=== PATIENT | female | born 1985 | race American Indian/Alaskan Native ===

== ENCOUNTER 2018-03-29 21:29 | Emergency (ER) | payer BC, OTHER ==
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
[2018-03-29 22:16] LABS: SQUAMOUS EPITHIAL 7 /hpf (0-5); URINE BACTERIA FEW (<OCC); URINE BILIRUBIN NEGATIVE (NEGATIVE); URINE BLOOD 3+ (NEGATIVE); URINE CLARITY Hazy (Clear); URINE COLOR Yellow (YELLOW); URINE GLUCOSE (UA) NORMAL (Normal); URINE LEUKOCYTE ESTERASE 2+ Leu/uL (Negative); URINE PROTEIN NEGATIVE (NEGATIVE); URINE UROBILINOGEN NORMAL mg/dL (0.2-1.0)
[2018-03-29 22:17] LABS: BASO # 0.1 K/uL (0.0-0.2); BASO % 0.5 % (0.0-2.0); EOS # 0.1 K/uL (0.0-0.7); EOS % 0.7 % (0.0-4.0); HEMOGLOBIN 14.1 g/dL (11.0-16.0); LYMPH # 2.9 K/uL (1.0-4.3); LYMPH % 25.5 % (20.0-40.0); MEAN CORPUSCULAR HEMOGLOBIN 30.5 pg (27.0-31.0); MEAN CORPUSCULAR HGB CONC 33.7 g/dL (33.0-37.0); MEAN PLATELET VOLUME 7.4 fL (7.2-11.7); MONO # 0.7 K/uL (0.0-0.8); MONO % 5.8 % (0.0-10.0); NEUT # 7.7 K/uL (1.8-7.0); NEUT % 67.5 % (50.0-75.0); RBC 4.63 Mil/uL (3.80-5.20); RED CELL DISTRIBUTION WIDTH 13.4 % (11.5-14.5); WHITE BLOOD COUNT 11.4 K/uL (4.8-10.8)
[2018-03-29 22:18] LABS: MEAN CELL VOLUME 90.3 fL (81.0-99.0)
[2018-03-29 22:21] LABS: HCG,QUALITATIVE URINE POSITIVE (NEGATIVE)
[2018-03-29 22:25] LABS: INR 1.1; PROTHROMBIN TIME 12.1 SECONDS (9.7-12.2)
[2018-03-29 22:37] LABS: ALB/GLOB RATIO 1.4 (1.0-2.1); ALBUMIN 4.4 g/dL (3.5-5.0); ALT/SGPT 32 U/L (9-52); AST/SGOT 25 U/L (14-36); BLOOD UREA NITROGEN 10 mg/dL (7-17); CALCIUM 10.5 mg/dl (8.6-10.4); GFR NON-AFRICAN AMERICAN > 60
[2018-03-30] MEDS ORDERED: Methotrexate 50 mg/2 ml Inj IM ONE (01:03)
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
[2018-03-30 01:40] VITALS: BP 123/62; PULSE 75; RESP 20; TEMP 98.2; O2SAT 98
--- NOTE | 2018-03-30 11:04 | US ---
Date of service: 03/29/2018 Indication: vag bleed, 4 weeks Comparison: Pelvic ultrasound performed 12/17/14 Technique: Real-time transabdominal pelvic ultrasound was performed. In addition a transvaginal pelvic ultrasound was necessary to better depict pelvic anatomy. Findings: The uterus measures approximately 8.6 x 4.2 x 5.3 cm. Anteverted. 0.9 x 0.9 x 0.9 cm fundal fibroid. Endometrium measures approximately 1.3 cm in diameter. No evidence of intrauterine gestational sac. The right ovary measures 3.2 x 1.8 x 2.4 cm. The left ovary measures 2.4 x 1.7 x 2.5. Blood flow was demonstrated to both ovaries. Evidence of complex left adnexal mass demonstrating vascularity. Impression: Evidence of complex left adnexal mass demonstrating vascularity, possibly ectopic . No evidence of intrauterine gestational sac. If indeed the patient is based on serum beta HCG values, the sonographic findings represent either: Very early IUP; embryonic demise; ectopic gestation. Follow-up with serial quantitative serum beta HCG measurements and post OBGYN follow-up as clinically indicated. 0.9 x 0.9 x 0.9 cm fundal fibroid. Preliminary impression was provided by TEAGAN Romano.
== END 2018-03-30 01:39 | disposition home or self-care (01) ==
LOC: C.ER 21:29
DX: O00.90 Unspecified ectopic pregnancy without intrauterine pregnancy (principal); Z3A.01 Less than 8 weeks gestation of pregnancy
CPT/HCPCS: 76830; 76856; 80053; 81001; 84702; 84703; 85025; 85610; 85730; 86850; 86900; 96372; 99285; J9250

== ENCOUNTER 2018-04-02 13:10 | Emergency (ER) | payer OTHER ==
[2018-04-02 13:41] VITALS: O2SAT 99
[2018-04-02] MEDS ORDERED: Methotrexate 50 mg/2 ml Inj IM STA (14:19)
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
[2018-04-02 17:01] VITALS: BP 124/76; PULSE 62; RESP 18; TEMP 98.4
== END 2018-04-02 17:01 | disposition home or self-care (01) ==
LOC: C.ER 13:10
DX: O00.209 Unspecified ovarian pregnancy without intrauterine pregnancy (principal); O03.9 Complete or unspecified spontaneous abortion without complication

== ENCOUNTER 2018-04-05 18:25 | Emergency (ER) | payer OTHER ==
[2018-04-05 18:34] VITALS: BP 128/74; PULSE 62; RESP 18; TEMP 98.7; O2SAT 99
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
== END 2018-04-05 20:33 | disposition home or self-care (01) ==
LOC: C.ER 18:25
DX: Z00.00 Encounter for general adult medical examination without abnormal findings (principal); O00.90 Unspecified ectopic pregnancy without intrauterine pregnancy